=== PATIENT | male | born 1940 | race Caucasian/White ===

== ENCOUNTER 2022-09-06 10:45 | Inpatient (IN) | payer OTHER ==
[2022-09-06 11:13] LABS: #Monocytes 0.8 10x3/uL (0.0-1.1); #Neutrophils 11.3 10x3/uL (1.5-8.4); %Basophils 0.2 % (0.0-2.0); %Eosinophils 0.1 % (0.0-6.0); %Lymphocytes 5.3 % (18.0-47.0); %Monocytes 6.3 % (0.0-10.0); %Neutrophils 87.6 % (40.0-75.0); Hemoglobin 12.5 g/dL (13.5-17.5); Mean Corpuscular HGB CONC 34.3 g/dL (32.0-36.0); Mean Corpuscular Hemoglobin 31.2 pg (27.0-33.0); Mean Corpuscular Volume 90.8 fl (81.2-95.1); Mean Platelet Volume 9.6 fl (7.4-10.4); Platelet Count 285 10x3/uL (150-450); RBC Distribution Width 12.2 % (11.5-14.5); Red Blood Cell (RBC) Count 4.01 10x6/uL (4.32-5.72); White Blood Cell (WBC) Count 12.9 10x3/uL (3.5-10.5)
[2022-09-06] MEDS ORDERED: Magnesium 2 GM/50 ML BAG (IN WATER) ONE (11:22)
[2022-09-06 11:34] LABS: ALT (SGPT) 38 U/L (8-55); AST (SGOT) 46 U/L (5-34); Albumin 3.3 g/dL (3.4-4.8); Alkaline Phosphatase 100 U/L (40-110); Anion Gap 12 mmol/L (10-20); BUN (Urea Nitrogen) 12 mg/dL (8.4-25.7); Bilirubin, Total 0.5 mg/dL (0.2-1.2); Calc. Creatinine Clearance 0 mL/min (70-130); Calcium 7.9 mg/dL (7.8-10.44); Carbon Dioxide 30 mmol/L (23-31); Chloride 89 mmol/L (98-107); Estimated GFR 87; Globulin 2.1 g/dL (2.4-3.5); Glucose 128 mg/dL (83-110); Potassium 5.4 mmol/L (3.5-5.1); Protein, Total 5.4 g/dL (5.8-8.1); Sodium 126 mmol/L (136-145)
[2022-09-06] MEDS ORDERED: Ipratropium/Albuterol 3 ML NEB ONE (11:52)
[2022-09-06 11:57] LABS: CKMB 6.2 ng/mL (0-6.6)
[2022-09-06] MEDS ORDERED: Acetaminophen 325 MG TAB PO PRN (12:29)
[2022-09-06] MEDS ORDERED: Ondansetron PF 4 MG/2 ML Vial IVP PRN (12:29)
[2022-09-06] MEDS ORDERED: Senokot S 8.6-50 MG TAB PO PRN (12:29)
[2022-09-06] MEDS ORDERED: HYDROcodone/Acetaminophen 5/325 mg Tablet PO PRN (12:29)
[2022-09-06 13:08] LABS: SARS-CoV-2 NAA Rapid Test Not Detected (NotDetected)
[2022-09-06 13:25] LABS: Troponin I 0.084 ng/mL (< 0.028)
[2022-09-06] MEDS ORDERED: Furosemide 40 MG/4 ML VIAL SLOW IVP SCH ×3 (14:00→23:00)
[2022-09-06 15:21] VITALS: BMI 20.9
[2022-09-06 16:17] LABS: Troponin I 0.101 ng/mL (< 0.028)
[2022-09-06] MEDS: Ipratropium/Albuterol 3 ML NEB NEB SCH ×2 (16:42→19:03)
[2022-09-06] MEDS ORDERED: Calcium Carbonate 500 MG ChewTAB PO PRN (17:22)
[2022-09-06] MEDS ORDERED: Mag-Al 1200 mg/1200 mg/30 ML UDCUP PO PRN (17:22)
[2022-09-06] MEDS: methylPREDNISolone Sod Succ 40 MG VIAL IVP SCH ×2 (17:35→23:01)
[2022-09-06] MEDS: Famotidine 20 MG TAB PO SCH (20:21)
[2022-09-06] MEDS: Ipratropium/Albuterol 3 ML NEB NEB PRN (22:03)
[2022-09-06] MEDS: Furosemide 40 MG/4 ML VIAL SLOW IVP SCH (23:40)
[2022-09-07] MEDS: Ipratropium/Albuterol 3 ML NEB NEB SCH ×6 (01:20→23:00)
[2022-09-07 04:47] LABS: #Monocytes 0.3 10x3/uL (0.0-1.1); #Neutrophils 15.2 10x3/uL (1.5-8.4); %Basophils 0.1 % (0.0-2.0); %Lymphocytes 4.6 % (18.0-47.0); %Monocytes 2.1 % (0.0-10.0); %Neutrophils 92.3 % (40.0-75.0); Hemoglobin 13.5 g/dL (13.5-17.5); Mean Corpuscular HGB CONC 34.8 g/dL (32.0-36.0); Mean Corpuscular Hemoglobin 31.3 pg (27.0-33.0); Mean Platelet Volume 10.1 fl (7.4-10.4); Platelet Count 300 10x3/uL (150-450); Red Blood Cell (RBC) Count 4.31 10x6/uL (4.32-5.72); White Blood Cell (WBC) Count 16.5 10x3/uL (3.5-10.5)
[2022-09-07] MEDS: guaiFENesin ER 600 MG TAB PO SCH ×2 (04:53→17:05)
[2022-09-07 05:00] LABS: Anion Gap 14 mmol/L (10-20); BUN (Urea Nitrogen) 16 mg/dL (8.4-25.7); Calc. Creatinine Clearance 63 mL/min (70-130); Calcium 8.5 mg/dL (7.8-10.44); Carbon Dioxide 30 mmol/L (23-31); Chloride 88 mmol/L (98-107); Estimated GFR 89; Glucose 165 mg/dL (83-110); Potassium 3.7 mmol/L (3.5-5.1); Sodium 128 mmol/L (136-145)
[2022-09-07] MEDS ORDERED: Aspirin 81 mg Enteric Coated Tablet PO SCH (05:00)
[2022-09-07] MEDS: methylPREDNISolone Sod Succ 40 MG VIAL IVP SCH ×4 (05:10→23:47)
[2022-09-07] MEDS: Atorvastatin Calcium 40 MG TAB PO SCH (08:22)
[2022-09-07] MEDS: Benzonatate 100 MG CAP PO PRN ×2 (08:22→17:05)
[2022-09-07] MEDS: Carvedilol 12.5 MG TAB PO SCH ×2 (08:22→17:05)
[2022-09-07] MEDS: Aspirin 81 mg Enteric Coated Tablet PO SCH (08:22)
[2022-09-07] MEDS: Famotidine 20 MG TAB PO SCH ×2 (08:22→20:22)
[2022-09-07] MEDS: Lisinopril 5 MG TAB PO SCH (08:22)
[2022-09-07] MEDS: Tamsulosin HCl 0.4 MG CAP PO SCH ×2 (08:22→20:23)
[2022-09-07] MEDS ORDERED: Furosemide 40 MG/4 ML VIAL SLOW IVP SCH (09:00)
[2022-09-07] MEDS: Ipratropium/Albuterol 3 ML NEB NEB PRN (10:50)
[2022-09-07] MEDS ORDERED: Furosemide 40 MG/4 ML VIAL ONE (10:54)
[2022-09-07] MEDS ORDERED: ALPRAZolam 0.25 MG TAB PO SCH (11:15)
[2022-09-07] MEDS ORDERED: Lorazepam 2 MG/ML VIAL SLOW IVP PRN (11:24)
[2022-09-07] MEDS ORDERED: Lorazepam 2 MG/ML VIAL ONE (11:29)
[2022-09-07] MEDS: Furosemide 40 MG/4 ML VIAL SLOW IVP SCH ×2 (11:51→23:47)
[2022-09-07] MEDS ORDERED: NOREPINEPHRINE 8 MG/250 ML-D5W 250 ML ONE (12:14)
[2022-09-07] MEDS ORDERED: NOREPINEPHRINE 8 MG/250 ML-D5W 250 ML IVPB SCH (13:00)
[2022-09-08] MEDS: Ipratropium/Albuterol 3 ML NEB NEB SCH ×6 (03:20→22:40)
[2022-09-08] MEDS ORDERED: Morphine 2 MG/ML VIAL SLOW IVP PRN (04:41)
[2022-09-08] MEDS: methylPREDNISolone Sod Succ 40 MG VIAL IVP SCH ×4 (05:03→22:49)
[2022-09-08] MEDS: guaiFENesin ER 600 MG TAB PO SCH ×2 (05:03→17:45)
[2022-09-08 08:48] LABS: Hemoglobin 13.6 g/dL (13.5-17.5); Mean Corpuscular HGB CONC 33.5 g/dL (32.0-36.0); Mean Corpuscular Hemoglobin 30.9 pg (27.0-33.0); Mean Corpuscular Volume 92.3 fl (81.2-95.1); Mean Platelet Volume 9.7 fl (7.4-10.4); Platelet Count 257 10x3/uL (150-450); RBC Distribution Width 12.2 % (11.5-14.5); White Blood Cell (WBC) Count 29.8 10x3/uL (3.5-10.5)
[2022-09-08 08:49] LABS: MDiff Complete? YES
[2022-09-08] MEDS ORDERED: Amino Acids 4.25 %/Dextrose 5% 2,000 ML BAG IV SCH (09:00)
[2022-09-08 09:05] LABS: ALT (SGPT) 46 U/L (8-55); AST (SGOT) 52 U/L (5-34); Albumin 3.4 g/dL (3.4-4.8); Alkaline Phosphatase 92 U/L (40-110); Anion Gap 19 mmol/L (10-20); BUN (Urea Nitrogen) 27 mg/dL (8.4-25.7); Bilirubin, Total 0.3 mg/dL (0.2-1.2); Calc. Creatinine Clearance 46 mL/min (70-130); Carbon Dioxide 28 mmol/L (23-31); Chloride 87 mmol/L (98-107); Estimated GFR 70; Globulin 2.6 g/dL (2.4-3.5); Glucose 152 mg/dL (83-110); Potassium 4.7 mmol/L (3.5-5.1); Sodium 129 mmol/L (136-145)
[2022-09-08 09:10] LABS: Band 5 % (5-11); Lymphocytes 5 % (21-51); Monocytes 3 % (0-10); Neutrophil 87 % (42-75)
[2022-09-08 09:13] LABS: Platelet Morphology Comment Appears Adequate
[2022-09-08] MEDS: Carvedilol 12.5 MG TAB PO SCH ×2 (09:19→17:45)
[2022-09-08] MEDS: Amino Acids 4.25 %/Dextrose 5% 1,000 ML IV SCH (09:19)
[2022-09-08] MEDS: Ipratropium/Albuterol 3 ML NEB NEB PRN (09:40)
[2022-09-08 09:58] LABS: Calcium, Ionized (arterial) 1.07 mmol/L (1.12-1.30); Carboxyhemoglobin (COHb) 0.6 gm% (0.0-3.0); Hemoglobin (Hb) 13.4 g/dL (14.0-18.0); O2 Tension (PaO2), arterial 76.2 mmHg (> 60.0); Potassium - ABG Lab 4.2 mmol/L (3.70-5.30); Puncture Site RBA; pH, Arterial 7.28 (7.35-7.45)
[2022-09-08] MEDS: Dexmedetomidine In 0.9 % NaCl 100 ML IVPB SCH ×2 (11:25→22:49)
[2022-09-08] MEDS: Furosemide 40 MG/4 ML VIAL SLOW IVP SCH ×2 (11:43→22:49)
[2022-09-08 14:11] LABS: Actual Bicarbonate (HCO3a) 34.1 mEq/L (22-28); Base Excess (BEa) 6.3 mEq/L (-2.0 to +3.0); CO2 Tension 64.9 mmHg (35.0-45.0); Calcium, Ionized (arterial) 1.05 mmol/L (1.12-1.30); Carboxyhemoglobin (COHb) 0.6 gm% (0.0-3.0); Hemoglobin (Hb) 12.6 g/dL (14.0-18.0); O2 Tension (PaO2), arterial 100.4 mmHg (> 60.0); Potassium - ABG Lab 4.2 mmol/L (3.70-5.30); Puncture Site RBA; pH, Arterial 7.34 (7.35-7.45)
[2022-09-08 14:13] LABS: ALV-art Gradient 32.375 mmHg (0-20)
[2022-09-08] MEDS ORDERED: Arformoterol 15 MCG/2 ML NEB NEB SCH (14:15)
[2022-09-08] MEDS: Atorvastatin Calcium 40 MG TAB PO SCH (14:41)
[2022-09-08] MEDS: Aspirin 81 mg Enteric Coated Tablet PO SCH (14:41)
[2022-09-08] MEDS: Tamsulosin HCl 0.4 MG CAP PO SCH ×2 (14:41→20:18)
[2022-09-08] MEDS: Lisinopril 5 MG TAB PO SCH (14:41)
[2022-09-08] MEDS: Famotidine 20 MG TAB PO SCH ×2 (18:33→20:13)
[2022-09-09] MEDS: Ipratropium/Albuterol 3 ML NEB NEB SCH ×6 (03:20→22:15)
[2022-09-09 04:37] LABS: #Monocytes 0.7 10x3/uL (0.0-1.1); %Basophils 0.1 % (0.0-2.0); %Monocytes 3.8 % (0.0-10.0); %Neutrophils 92.4 % (40.0-75.0); Hemoglobin 13.1 g/dL (13.5-17.5); Mean Corpuscular HGB CONC 33.6 g/dL (32.0-36.0); Mean Corpuscular Hemoglobin 30.9 pg (27.0-33.0); Platelet Count 201 10x3/uL (150-450); RBC Distribution Width 11.9 % (11.5-14.5); Red Blood Cell (RBC) Count 4.24 10x6/uL (4.32-5.72); White Blood Cell (WBC) Count 17.3 10x3/uL (3.5-10.5)
[2022-09-09 05:00] LABS: ALT (SGPT) 35 U/L (8-55); AST (SGOT) 31 U/L (5-34); Albumin 3.1 g/dL (3.4-4.8); Alkaline Phosphatase 71 U/L (40-110); Anion Gap 14 mmol/L (10-20); BUN (Urea Nitrogen) 43 mg/dL (8.4-25.7); Bilirubin, Total 0.2 mg/dL (0.2-1.2); Calc. Creatinine Clearance 45 mL/min (70-130); Carbon Dioxide 31 mmol/L (23-31); Chloride 87 mmol/L (98-107); Estimated GFR 69; Globulin 2.1 g/dL (2.4-3.5); Glucose 186 mg/dL (83-110); Potassium 4.5 mmol/L (3.5-5.1); Protein, Total 5.2 g/dL (5.8-8.1); Sodium 127 mmol/L (136-145)
[2022-09-09] MEDS: methylPREDNISolone Sod Succ 40 MG VIAL IVP SCH ×4 (06:22→23:44)
[2022-09-09] MEDS: guaiFENesin ER 600 MG TAB PO SCH ×2 (06:23→17:27)
[2022-09-09] MEDS: Amino Acids 4.25 %/Dextrose 5% 1,000 ML IV SCH (06:32)
[2022-09-09] MEDS: Arformoterol 15 MCG/2 ML NEB NEB SCH ×2 (06:50→19:40)
[2022-09-09] MEDS ORDERED: Magnesium Sulfate 4 GM in Sodium Chloride 0.9% 250 ML 250 ML IVPB SCH (08:15)
[2022-09-09] MEDS: Aspirin 81 mg Enteric Coated Tablet PO SCH (08:57)
[2022-09-09] MEDS: Atorvastatin Calcium 40 MG TAB PO SCH (08:57)
[2022-09-09] MEDS: Carvedilol 12.5 MG TAB PO SCH ×2 (08:57→17:27)
[2022-09-09] MEDS: Magnesium 2 GM/50 ML(in water) 2 GM in Premix Bag 1 BAG IVPB SCH ×2 (08:58→10:15)
[2022-09-09] MEDS: Lisinopril 5 MG TAB PO SCH (09:38)
[2022-09-09] MEDS: Tamsulosin HCl 0.4 MG CAP PO SCH ×2 (09:39→20:22)
[2022-09-09] MEDS: Furosemide 40 MG/4 ML VIAL SLOW IVP SCH ×2 (11:30→23:44)
[2022-09-09 18:01] LABS: CO2 Tension 75.4 mmHg (35.0-45.0); pH, Arterial 7.23 (7.35-7.45)
[2022-09-09 18:02] LABS: Actual Bicarbonate (HCO3a) 30.7 mEq/L (22-28); Base Excess (BEa) 0.9 mEq/L (-2.0 to +3.0); Calcium, Ionized (arterial) 1.11 mmol/L (1.12-1.30); Carboxyhemoglobin (COHb) 0.5 gm% (0.0-3.0); Hemoglobin (Hb) 14.2 g/dL (14.0-18.0); Potassium - ABG Lab 5.5 mmol/L (3.70-5.30); Puncture Site LRA
[2022-09-09 18:02] LABS: Base Excess (BEa) 3.2 mEq/L (-2.0 to +3.0); CO2 Tension 62.4 mmHg (35.0-45.0); Calcium, Ionized (arterial) 1.06 mmol/L (1.12-1.30); Carboxyhemoglobin (COHb) 0.6 gm% (0.0-3.0); Hemoglobin (Hb) 13.4 g/dL (14.0-18.0); O2 Tension (PaO2), arterial 104.3 mmHg (> 60.0); Potassium - ABG Lab 4.5 mmol/L (3.70-5.30); Puncture Site RRA; pH, Arterial 7.31 (7.35-7.45)
[2022-09-09] MEDS: Famotidine 20 MG TAB PO SCH (20:22)
[2022-09-09] MEDS: Benzonatate 100 MG CAP PO PRN (21:58)
[2022-09-09] MEDS: Dexmedetomidine In 0.9 % NaCl 100 ML IVPB SCH (23:44)
[2022-09-10] MEDS: Ipratropium/Albuterol 3 ML NEB NEB SCH ×5 (03:05→19:19)
[2022-09-10 05:07] LABS: Anion Gap 14 mmol/L (10-20); BUN (Urea Nitrogen) 36 mg/dL (8.4-25.7); Calc. Creatinine Clearance 60 mL/min (70-130); Calcium 7.9 mg/dL (7.8-10.44); Carbon Dioxide 36 mmol/L (23-31); Chloride 85 mmol/L (98-107); Estimated GFR 88; Glucose 144 mg/dL (83-110); Potassium 3.6 mmol/L (3.5-5.1); Sodium 131 mmol/L (136-145)
[2022-09-10 05:14] LABS: #Monocytes 0.7 10x3/uL (0.0-1.1); #Neutrophils 16.6 10x3/uL (1.5-8.4); %Basophils 0.1 % (0.0-2.0); %Eosinophils 0.1 % (0.0-6.0); %Lymphocytes 2.9 % (18.0-47.0); %Monocytes 3.8 % (0.0-10.0); %Neutrophils 92.5 % (40.0-75.0); Hemoglobin 12.8 g/dL (13.5-17.5); Mean Corpuscular HGB CONC 35.2 g/dL (32.0-36.0); Mean Corpuscular Hemoglobin 31.4 pg (27.0-33.0); Mean Corpuscular Volume 89.4 fl (81.2-95.1); Mean Platelet Volume 9.8 fl (7.4-10.4); Platelet Count 217 10x3/uL (150-450); RBC Distribution Width 11.8 % (11.5-14.5); Red Blood Cell (RBC) Count 4.07 10x6/uL (4.32-5.72)
[2022-09-10] MEDS: methylPREDNISolone Sod Succ 40 MG VIAL IVP SCH ×3 (05:27→20:41)
[2022-09-10] MEDS: guaiFENesin ER 600 MG TAB PO SCH ×2 (05:28→17:28)
[2022-09-10] MEDS: Arformoterol 15 MCG/2 ML NEB NEB SCH ×2 (07:31→19:19)
[2022-09-10] MEDS: Famotidine 20 MG TAB PO SCH ×2 (08:52→20:41)
[2022-09-10] MEDS: Aspirin 81 mg Enteric Coated Tablet PO SCH (08:52)
[2022-09-10] MEDS: Carvedilol 12.5 MG TAB PO SCH ×2 (08:52→17:28)
[2022-09-10] MEDS: Tamsulosin HCl 0.4 MG CAP PO SCH ×2 (08:52→21:34)
[2022-09-10] MEDS: Lisinopril 5 MG TAB PO SCH (08:52)
[2022-09-10] MEDS: Atorvastatin Calcium 40 MG TAB PO SCH (08:53)
[2022-09-11] MEDS ORDERED: Nitroglycerin 2% Ointment 1 INCH/1 GM Packet TOP SCH (03:00)
[2022-09-11] MEDS: guaiFENesin ER 600 MG TAB PO SCH ×2 (05:37→18:06)
[2022-09-11] MEDS: Arformoterol 15 MCG/2 ML NEB NEB SCH ×2 (07:37→20:05)
[2022-09-11] MEDS: Aspirin 81 mg Enteric Coated Tablet PO SCH (08:39)
[2022-09-11] MEDS: Tamsulosin HCl 0.4 MG CAP PO SCH ×2 (08:39→22:06)
[2022-09-11] MEDS: Famotidine 20 MG TAB PO SCH ×2 (08:39→22:05)
[2022-09-11] MEDS: Atorvastatin Calcium 40 MG TAB PO SCH (08:39)
[2022-09-11] MEDS: Carvedilol 12.5 MG TAB PO SCH ×2 (08:39→16:46)
[2022-09-11] MEDS: Furosemide 40 MG TAB PO SCH (08:39)
[2022-09-11] MEDS: Lisinopril 20 MG TAB PO SCH (08:39)
[2022-09-11] MEDS: methylPREDNISolone Sod Succ 40 MG VIAL IVP SCH ×2 (08:40→22:06)
[2022-09-11] MEDS: Ipratropium/Albuterol 3 ML NEB NEB PRN (20:09)
[2022-09-12] MEDS ORDERED: Metoprolol Tartrate 25 MG TAB PO SCH (03:30)
[2022-09-12 05:12] LABS: BUN (Urea Nitrogen) 26 mg/dL (8.4-25.7); Calc. Creatinine Clearance 63 mL/min (70-130); Calcium 8.4 mg/dL (7.8-10.44); Estimated GFR 89; Glucose 153 mg/dL (83-110); Magnesium 2.1 mg/dL (1.6-2.6)
[2022-09-12 05:20] LABS: Anion Gap 19 mmol/L (10-20); Carbon Dioxide 36 mmol/L (23-31); Chloride 85 mmol/L (98-107); Potassium 4.2 mmol/L (3.5-5.1); Sodium 136 mmol/L (136-145)
[2022-09-12] MEDS: guaiFENesin ER 600 MG TAB PO SCH ×2 (05:30→17:55)
[2022-09-12] MEDS: Arformoterol 15 MCG/2 ML NEB NEB SCH ×2 (07:30→20:05)
[2022-09-12] MEDS: Aspirin 81 mg Enteric Coated Tablet PO SCH (09:16)
[2022-09-12] MEDS: methylPREDNISolone Sod Succ 40 MG VIAL IVP SCH (09:16)
[2022-09-12] MEDS: Famotidine 20 MG TAB PO SCH ×2 (09:16→21:53)
[2022-09-12] MEDS: Tamsulosin HCl 0.4 MG CAP PO SCH ×2 (09:16→21:54)
[2022-09-12] MEDS: Carvedilol 12.5 MG TAB PO SCH ×2 (09:16→17:55)
[2022-09-12] MEDS: Furosemide 40 MG TAB PO SCH (09:16)
[2022-09-12] MEDS: Lisinopril 20 MG TAB PO SCH ×2 (09:16→21:54)
[2022-09-12] MEDS: Atorvastatin Calcium 40 MG TAB PO SCH (09:16)
[2022-09-12] MEDS: Mirtazapine 15 MG TAB PO SCH (21:54)
[2022-09-13] MEDS: guaiFENesin ER 600 MG TAB PO SCH ×2 (06:53→17:25)
[2022-09-13] MEDS: Arformoterol 15 MCG/2 ML NEB NEB SCH ×2 (07:15→20:39)
[2022-09-13 09:05] LABS: Hemoglobin 13.3 g/dL (13.5-17.5); Mean Corpuscular HGB CONC 33.3 g/dL (32.0-36.0); Mean Corpuscular Hemoglobin 30.9 pg (27.0-33.0); Mean Corpuscular Volume 92.6 fl (81.2-95.1); Platelet Count 280 10x3/uL (150-450); RBC Distribution Width 11.6 % (11.5-14.5); Red Blood Cell (RBC) Count 4.31 10x6/uL (4.32-5.72); White Blood Cell (WBC) Count 21.3 10x3/uL (3.5-10.5)
[2022-09-13 09:13] LABS: BUN (Urea Nitrogen) 19 mg/dL (8.4-25.7); Calc. Creatinine Clearance 64 mL/min (70-130); Calcium 8.5 mg/dL (7.8-10.44); Estimated GFR 90; Glucose 135 mg/dL (83-110)
[2022-09-13 09:20] LABS: Anion Gap 14 mmol/L (10-20); Carbon Dioxide 41 mmol/L (23-31); Chloride 84 mmol/L (98-107); Sodium 135 mmol/L (136-145)
[2022-09-13 09:24] LABS: MDiff Complete? YES
[2022-09-13 09:26] LABS: Lymphocytes 6 % (21-51); Monocytes 4 % (0-10); Neutrophil 90 % (42-75)
[2022-09-13 09:28] LABS: Platelet Morphology Comment Appears Adequate
[2022-09-13] MEDS: predniSONE 20 MG TAB PO SCH (10:04)
[2022-09-13] MEDS: Atorvastatin Calcium 40 MG TAB PO SCH (10:04)
[2022-09-13] MEDS: Furosemide 40 MG TAB PO SCH (10:05)
[2022-09-13] MEDS: Famotidine 20 MG TAB PO SCH ×2 (10:05→20:20)
[2022-09-13] MEDS: Carvedilol 12.5 MG TAB PO SCH (10:05)
[2022-09-13] MEDS: Aspirin 81 mg Enteric Coated Tablet PO SCH (10:05)
[2022-09-13] MEDS: Lisinopril 20 MG TAB PO SCH ×2 (10:05→20:20)
[2022-09-13] MEDS: Tamsulosin HCl 0.4 MG CAP PO SCH ×2 (10:06→20:19)
[2022-09-13] MEDS: Carvedilol 25 MG TAB PO SCH (17:25)
[2022-09-13] MEDS: Mirtazapine 15 MG TAB PO SCH (20:20)
[2022-09-14 04:05] LABS: Hemoglobin 12.6 g/dL (13.5-17.5); Mean Corpuscular HGB CONC 33.2 g/dL (32.0-36.0); Mean Corpuscular Hemoglobin 31.1 pg (27.0-33.0); Mean Corpuscular Volume 93.6 fl (81.2-95.1); Mean Platelet Volume 10.2 fl (7.4-10.4); Platelet Count 278 10x3/uL (150-450); RBC Distribution Width 11.6 % (11.5-14.5); Red Blood Cell (RBC) Count 4.05 10x6/uL (4.32-5.72); White Blood Cell (WBC) Count 27.6 10x3/uL (3.5-10.5)
[2022-09-14 04:16] LABS: BUN (Urea Nitrogen) 30 mg/dL (8.4-25.7); Calc. Creatinine Clearance 67 mL/min (70-130); Calcium 8.4 mg/dL (7.8-10.44); Estimated GFR 91; Glucose 172 mg/dL (83-110)
[2022-09-14 04:23] LABS: Anion Gap 15 mmol/L (10-20); Carbon Dioxide 39 mmol/L (23-31); Chloride 83 mmol/L (98-107); Potassium 3.9 mmol/L (3.5-5.1); Sodium 133 mmol/L (136-145)
[2022-09-14 04:33] LABS: MDiff Complete? YES
[2022-09-14 04:36] LABS: Band 3 % (5-11); Lymphocytes 2 % (21-51); Monocytes 8 % (0-10); Neutrophil 84 % (42-75); Reactive Lymphocytes 3 % (0-10)
[2022-09-14 04:37] LABS: Platelet Morphology Comment Appears Adequate; Toxic Granulation SLIGHT; Vacuoles SLIGHT
[2022-09-14 04:38] LABS: RBC Morphology Normal
[2022-09-14] MEDS: guaiFENesin ER 600 MG TAB PO SCH ×3 (06:27→17:35)
[2022-09-14] MEDS: Arformoterol 15 MCG/2 ML NEB NEB SCH ×2 (07:47→18:44)
[2022-09-14] MEDS: Furosemide 40 MG TAB PO SCH (09:55)
[2022-09-14] MEDS: Carvedilol 25 MG TAB PO SCH ×2 (09:55→17:36)
[2022-09-14] MEDS: Atorvastatin Calcium 40 MG TAB PO SCH (09:56)
[2022-09-14] MEDS: Famotidine 20 MG TAB PO SCH ×2 (09:56→21:36)
[2022-09-14] MEDS: predniSONE 20 MG TAB PO SCH (09:56)
[2022-09-14] MEDS: Aspirin 81 mg Enteric Coated Tablet PO SCH (09:56)
[2022-09-14] MEDS: Lisinopril 20 MG TAB PO SCH ×2 (09:57→21:32)
[2022-09-14] MEDS: Tamsulosin HCl 0.4 MG CAP PO SCH (09:57)
[2022-09-14] MEDS: Ipratropium/Albuterol 3 ML NEB NEB PRN (18:46)
[2022-09-14] MEDS: Mirtazapine 15 MG TAB PO SCH (21:36)
[2022-09-15] MEDS: guaiFENesin ER 600 MG TAB PO SCH ×2 (05:58→17:31)
[2022-09-15] MEDS: Arformoterol 15 MCG/2 ML NEB NEB SCH ×2 (07:47→19:45)
[2022-09-15] MEDS: Lisinopril 20 MG TAB PO SCH ×2 (09:04→21:49)
[2022-09-15] MEDS: Aspirin 81 mg Enteric Coated Tablet PO SCH (09:04)
[2022-09-15] MEDS: Furosemide 40 MG TAB PO SCH (09:04)
[2022-09-15] MEDS: Carvedilol 25 MG TAB PO SCH ×2 (09:04→17:55)
[2022-09-15] MEDS: predniSONE 20 MG TAB PO SCH (09:04)
[2022-09-15] MEDS: Famotidine 20 MG TAB PO SCH ×2 (09:04→21:48)
[2022-09-15] MEDS: Atorvastatin Calcium 40 MG TAB PO SCH (09:04)
[2022-09-15] MEDS: Ipratropium/Albuterol 3 ML NEB NEB PRN (19:45)
[2022-09-15] MEDS: Mirtazapine 15 MG TAB PO SCH (21:56)
[2022-09-16 04:05] LABS: Hemoglobin 11.6 g/dL (13.5-17.5); Mean Corpuscular HGB CONC 32.1 g/dL (32.0-36.0); Mean Corpuscular Hemoglobin 30.5 pg (27.0-33.0); Platelet Count 285 10x3/uL (150-450); RBC Distribution Width 11.6 % (11.5-14.5); White Blood Cell (WBC) Count 36.9 10x3/uL (3.5-10.5)
[2022-09-16 04:20] LABS: BUN (Urea Nitrogen) 46 mg/dL (8.4-25.7); Calc. Creatinine Clearance 51 mL/min (70-130); Calcium 8.7 mg/dL (7.8-10.44); Estimated GFR 80; Glucose 103 mg/dL (83-110)
[2022-09-16 04:23] LABS: MDiff Complete? YES
[2022-09-16 04:26] LABS: Anion Gap 14 mmol/L (10-20); Band 8 % (5-11); Carbon Dioxide 42 mmol/L (23-31); Chloride 84 mmol/L (98-107); Lymphocytes 2 % (21-51); Monocytes 1 % (0-10); Neutrophil 89 % (42-75); Potassium 4.7 mmol/L (3.5-5.1); Sodium 135 mmol/L (136-145)
[2022-09-16 04:27] LABS: Platelet Morphology Comment Appears Adequate; RBC Morphology Normal; Toxic Granulation MODERATE
[2022-09-16] MEDS: guaiFENesin ER 600 MG TAB PO SCH ×2 (05:26→20:55)
[2022-09-16] MEDS: Arformoterol 15 MCG/2 ML NEB NEB SCH ×2 (07:30→19:14)
[2022-09-16] MEDS: Atorvastatin Calcium 40 MG TAB PO SCH (08:10)
[2022-09-16] MEDS: Aspirin 81 mg Enteric Coated Tablet PO SCH (08:10)
[2022-09-16] MEDS: Lisinopril 20 MG TAB PO SCH ×3 (08:10→20:22)
[2022-09-16] MEDS: predniSONE 20 MG TAB PO SCH (08:10)
[2022-09-16] MEDS: Carvedilol 25 MG TAB PO SCH (08:10)
[2022-09-16] MEDS: Furosemide 40 MG TAB PO SCH (08:10)
[2022-09-16] MEDS: Famotidine 20 MG TAB PO SCH ×2 (08:10→20:19)
[2022-09-16] MEDS: Carvedilol 6.25 MG TAB PO SCH (16:49)
[2022-09-16] MEDS: Ipratropium/Albuterol 3 ML NEB NEB PRN (19:17)
[2022-09-16] MEDS: Mirtazapine 15 MG TAB PO SCH (20:20)
[2022-09-17] MEDS: guaiFENesin ER 600 MG TAB PO SCH (05:28)
[2022-09-17] MEDS: Arformoterol 15 MCG/2 ML NEB NEB SCH (07:28)
[2022-09-17] MEDS: Lisinopril 20 MG TAB PO SCH (08:46)
[2022-09-17] MEDS: Aspirin 81 mg Enteric Coated Tablet PO SCH (08:46)
[2022-09-17] MEDS: Carvedilol 6.25 MG TAB PO SCH (08:46)
[2022-09-17] MEDS: Atorvastatin Calcium 40 MG TAB PO SCH (08:46)
[2022-09-17] MEDS: predniSONE 20 MG TAB PO SCH (08:46)
[2022-09-17] MEDS: Furosemide 40 MG TAB PO SCH (08:46)
[2022-09-17] MEDS: Famotidine 20 MG TAB PO SCH (08:46)
[2022-09-17 09:26] VITALS: BP 120/65; TEMP 97.3
== END 2022-09-17 11:20 | disposition home or self-care (01) | DRG 291 ==
LOC: CSHERS 10:45 → CSHTELE 14:53 → CSHICU 09-07 11:18 → CSHTELE 09-10 21:35
PROVIDERS: ADMIT Family Medicine; ATTEND Internal Medicine
PROC: 3E033XZ Introduction of Vasopressor into Peripheral Vein, Percutaneous Approach (ICD-10-PCS; principal; 2022-09-07)
PROC: 5A09457 Assistance with Respiratory Ventilation, 24-96 Consecutive Hours, Continuous Positive Airway Pressure (ICD-10-PCS; 2022-09-07)
PROC: 5A0945A Assistance with Respiratory Ventilation, 24-96 Consecutive Hours, High Flow/Velocity Cannula (ICD-10-PCS; 2022-09-09)
DX: I11.0 Hypertensive heart disease with heart failure (principal); I50.43 Acute on chronic combined systolic (congestive) and diastolic (congestive) heart failure; J96.01 Acute respiratory failure with hypoxia; J96.02 Acute respiratory failure with hypercapnia; J44.1 Chronic obstructive pulmonary disease with (acute) exacerbation; E87.1 Hypo-osmolality and hyponatremia; E87.3 Alkalosis; I25.10 Atherosclerotic heart disease of native coronary artery without angina pectoris; E87.6 Hypokalemia; Z20.822 Contact with and (suspected) exposure to COVID-19; N40.0 Benign prostatic hyperplasia without lower urinary tract symptoms; Z98.890 Other specified postprocedural states; Z88.8 Allergy status to other drugs, medicaments and biological substances; Z79.82 Long term (current) use of aspirin; Z79.899 Other long term (current) drug therapy; Z90.49 Acquired absence of other specified parts of digestive tract
CPT/HCPCS: 36415; 36600; 71045; 80048; 80053; 82553; 82805; 83735; 83880; 84145; 84443; 84484; 85025; 87811; 93005; 93306; 94640; 94660; 94760; 96374; J1940; J1956; J2060; J2272; J2920; J3475; J7512; J7620